=== PATIENT | female | born 1960 | race Hispanic/Latino ===

== ENCOUNTER 2023-02-03 12:47 | Outpatient (CLI) | payer OTHER | END 2023-02-03 12:48 | disposition home or self-care (01) | LOC: BICCT 12:47 | PROVIDERS: ATTEND Physician Assistant | DX: S06.6X9A Traumatic subarachnoid hemorrhage with loss of consciousness of unspecified duration, initial encounter (principal); S02.119D Unspecified fracture of occiput, subsequent encounter for fracture with routine healing | CPT/HCPCS: 70450 ==